=== PATIENT | female | born 1975 | race Caucasian/White ===

== ENCOUNTER 2017-10-21 09:53 | Day surgery (SDC) | payer BC ==
[2017-10-21] MEDS ORDERED: ONDANSETRON HCL INJ/PF 4 MG/2 ML SDV ONE (11:13)
[2017-10-21] MEDS ORDERED: LIDOCAINE 2% INJ-PF (20 MG/ML) 10 ML AMPUL ONE (11:13)
[2017-10-21] MEDS ORDERED: PROPOFOL INJ 200 MG/20 ML VIAL IV ONE (11:14)
[2017-10-21] MEDS ORDERED: PROMETHAZINE HCL INJ 25 MG/1 ML VIAL IV PRN ×2 (12:36)
[2017-10-21] MEDS ORDERED: FENTANYL CITRATE INJ/PF 100 MCG/2 ML AMPUL IV PRN ×3 (12:36)
[2017-10-21] MEDS ORDERED: ONDANSETRON HCL INJ/PF 4 MG/2 ML SDV IV PRN (12:36)
[2017-10-21] MEDS ORDERED: MEPERIDINE HCL/PF INJ 25 MG/1 ML DISP.SYRIN IV PRN (12:36)
[2017-10-21] MEDS ORDERED: DIPHENHYDRAMINE HCL 50 MG/ML VIAL IV PRN (12:36)
[2017-10-21] MEDS ORDERED: DEXTROSE 5%-1/2 NORMAL SALINE 1,000 ML IV PRN (13:45)
[2017-10-21] MEDS ORDERED: ACETAMINOPHEN 325 MG TABLET PO PRN (13:46)
[2017-10-21] MEDS ORDERED: SIMETHICONE 80 MG TAB.CHEW PO PRN (13:47)
[2017-10-21] MEDS ORDERED: PROMETHAZINE HCL INJ 25 MG/1 ML VIAL INJ PRN (13:48)
--- NOTE | 2017-10-21 14:32 | Operative Report ---
Operative Report DATE OF SURGERY: 10/21/17 Operative Report: The risks, benefits and alternatives of the procedure including risks of bleeding, perforation requiring surgery are explained to the patient in detail and informed consent is obtained. Patient was taken back to the operating room and placed in a left, lateral decubital position. Timeout was called. Propofol medications administered. A rectal examination is done which did not reveal any masses, tears or fissures. An Olympus videoscope was inserted into the patient's rectum. The scope was then carefully advanced all the way to the cecum. The cecum was identified by the usual anatomical landmarks including the ileocecal valve as well as the appendiceal office. Photodocumentation is obtained. The scope was then sequentially pulled back via the various segments of the colon including the ascending colon, hepatic flexure, transverse colon, splenic flexure, descending colon and finally into the rectosigmoid portions of the colon. Retroflexion maneuvers performed. The risks benefits and alternatives of the procedure explained to the patient in detail and informed consent is obtained.A GIF Olympus video scope was inserted into the patient's mouth and hypopharynx, the esophagus is identified intubated and insufflated, the scope was then advanced through the esophagus stomach and duodenum ,retroflexion maneuver is done, the esophagus stomach and first and second portions of the duodenum examined PREOPERATIVE DIAGNOSIS: Left lower quadrant pain, possible melena POSTOPERATIVE DIAGNOSIS: Internal hemorrhoids. Transverse colon polyp versus a lipoma status post biopsy. The area was tattooed with Adrienne ink for future location if biopsies are not consistent with a lipoma. 2 sigmoid polyps I removed via snare polypectomy and retrieved. Esophagitis, gastritis and duodenitis status post biopsy rule out Helicobacter pylori OPERATION: Colonoscopy with snare polypectomy. Colonoscopy with submucosal injection of Adrienne ink. Colonoscopy with biopsy. EGD with biopsy SURGEON: SHAHNAZ KOVACS ANESTHESIA: LMAC TISSUE REMOVED OR ALTERED: As noted above. COMPLICATIONS: None. ESTIMATED BLOOD LOSS: None. INTRAOPERATIVE FINDINGS: As noted above. PROCEDURE: Patient tolerated procedure well. No immediate postprocedure complications are noted. Patient discharged in good condition. Discharge date 10/21/2017. Discharge diet: Regular. Discharge activity: Regular. 2-3 week follow-up to discuss findings. Patient is instructed to call the office or proceed to the emergency room should there be any further problems or questions. We will went pathology.
[2017-10-21 16:43] VITALS: BP 120/82
== END 2017-10-21 14:15 | disposition home or self-care (01) ==
LOC: OROUT 09:53
PROVIDERS: ATTEND Internal Medicine Gastroenterology
DX: K29.70 Gastritis, unspecified, without bleeding (principal); K29.80 Duodenitis without bleeding; D12.5 Benign neoplasm of sigmoid colon; K20.9 Esophagitis, unspecified; D12.3 Benign neoplasm of transverse colon; K92.1 Melena; F17.210 Nicotine dependence, cigarettes, uncomplicated; K64.8 Other hemorrhoids
CPT/HCPCS: 43239; 45380; 45381; 88342 ×2; 88305 ×2; J2405; J2704; J3490; 813

== ENCOUNTER → 2017-10-25 | Outpatient (CLI) | payer BC ==
--- NOTE | 2017-10-26 09:06 | WOMENS IMAGING REPORT ---
EXAM DESCRIPTION: BILAT SCREENING MAMMO W/CAD COMPLETED DATE/TIME: 10/25/2017 3:53 pm REASON FOR STUDY: ROUTINE SCREENING;Z12.31 Z12.31 ENCNTR SCREEN MAMMOGRAM FOR MALIGNANT NEOPLASM OF MONIQUE COMPARISON: None. TECHNIQUE: Standard craniocaudal and mediolateral oblique views of each breast recorded using digita l acquisition. LIMITATIONS: None. FINDINGS: No masses, calcifications or architectural distortion. No areas of suspicion. Read with the assistance of CAD. .[facility] - R2 Cenova Version 1.3 .[facility] - R2 Cenova Version 1.3 .[facility] - R2 Cenova Version 2.4 .[facility] - R2 Cenova Version 2.4 .[facility] - R2 Funeral Pre Arrangement Counselor Version 9.2 IMPRESSION: NORMAL MAMMOGRAM. BIRADS 1. BREAST DENSITY: b. There are scattered areas of fibroglandular density. BIRAD: 1 NEGATIVE RECOMMENDATION: ROUTINE SCREENING COMMENT: The patient has been notified of the results by letter per SA requirements. Additional no tification policies are in place for contacting patient with suspicious or incomplete findings. Quality ID #[id number]: The [employer] recommends an annual screening mammogram for women aged 40 years or over. This facility utilizes a reminder system to ensure that all patients receive reminder letters, and/or direct phone calls for appointments. This includes reminders for routine scr eening mammograms, diagnostic mammograms, or other Breast Imaging Interventions when appropriate. Th is patient will be placed in the appropriate reminder system. The [employer] (ACR) has developed recommendations for screening MRI of the breast s in certain patient populations, to be used in conjunction with mammography. Breast MRI surveillanc e may be appropriate for women with more than 20% lifetime risk of developing breast cancer as deter mined by genetic testing, significant family history of the disease, or history of mantle radiation f or Hodgkins Disease. ACR Practice Guidelines 2008. TECHNICAL DOCUMENTATION: FINDING NUMBER: (1) ASSESSMENT: (1) JOB ID: [id number] [employer]- All Rights Reserved Reading location - IP/workstation name: [facility]
== END ==
LOC: WI 15:33
PROVIDERS: ATTEND Physician Assistant
DX: Z12.31 Encounter for screening mammogram for malignant neoplasm of breast (principal)
CPT/HCPCS: 77067

== ENCOUNTER 2017-12-03 18:40 | Emergency (ER) | payer BC ==
[2017-12-03] MEDS ORDERED: LIDOCAINE 1% INJ-PF (10 MG/ML) 30 ML SDV INJ ONE (18:58)
--- NOTE | 2017-12-03 19:53 | ER Document Report ---
HPI - HPI Pain Level: 3 Notes: Patient is a 42-year-old female with no significant past medical history who presents to the ED complaining of pain, redness, mild swelling to the left proximal thigh/groin area 1 month. Patient states that she has not noticed any abscess or purulent discharge from the site. Pain does not radiate. Patient states that she has had something like this in the past and needed antibiotics for it. She denies any drug allergies. No other concerns or complaints at this time. Patient does admit to smoking but denies IV drug use, hormone use, previous DVT/PE, recent surgery/trauma, prolonged immobilization. Denies any headache, fever, URI, sore throat, chest pain, palpitations, syncope , cough, shortness of breath, wheeze, dyspnea, abdominal pain, nausea/vomiting/ diarrhea, urinary retention, dysuria, hematuria, loss of control of bowel or bladder, numbness/tingling, saddle anesthesia, muscle paralysis/weakness. - ROS Systems Reviewed and Negative: Yes All other systems reviewed and negative Past Medical History - Social History Smoking Status: Current Every Day Smoker Family History: Reviewed & Not Pertinent Patient has suicidal ideation: No Patient has homicidal ideation: No - Past Medical History Cardiac Medical History: Denies: Hx Coronary Artery Disease, Hx Heart Attack, Hx Hypertension Pulmonary Medical History: Denies: Hx Asthma, Hx Bronchitis, Hx COPD, Hx Pneumonia Neurological Medical History: Denies: Hx Cerebrovascular Accident, Hx Seizures Renal/ Medical History: Denies: Hx Peritoneal Dialysis Musculoskeltal Medical History: Denies Hx Arthritis - Immunizations Hx Diphtheria, Pertussis, Tetanus Vaccination: Yes Vertical Provider Document - CONSTITUTIONAL Agree With Documented VS: Yes Notes: PHYSICAL EXAMINATION: GENERAL: Well-appearing, well-nourished and in no acute distress. HEAD: Atraumatic, normocephalic. EYES: Pupils equal round and reactive to light, extraocular movements intact, sclera anicteric, conjunctiva are normal. ENT: EAC clear b/l. TM's intact b/l without erythema, fluid, or perforation. Nares patent and without discharge. oropharynx clear without exudates. No tonsilar hypertrophy or erythema. Moist mucous membranes. No sinus tenderness. NECK: Normal range of motion, supple without lymphadenopathy LUNGS: Breath sounds clear to auscultation bilaterally and equal. No wheezes rales or rhonchi. HEART: Regular rate and rhythm without murmurs, rubs, gallops. ABDOMEN: Soft, nontender, nondistended abdomen. No guarding, no rebound. No masses appreciated. Normal bowel sounds present. No CVA tenderness bilaterally. Musculoskeletal: Lt LE: FROM to passive/active. Strength 5+/5. N/V intact distal. Chip neg. Extremities: No cyanosis, clubbing, or edema b/l. Peripheral pulses 2+. Capillary refill less than 3 seconds. NEUROLOGICAL: Normal speech, normal gait. Normal sensory, motor exams PSYCH: Normal mood, normal affect. SKIN: Left groin: there is erythema with induration and + tenderness associated in the left groin area. No pulsation and not in the area of the artery. No purulence or streaks. No fluctuance noted. - INFECTION CONTROL TRAVEL OUTSIDE OF THE [place] IN LAST 30 DAYS: No Course - Re-evaluation Re-evalutation: 12/03/17 19:51 Patient is an afebrile, well-hydrated, 42-year-old female who presents to the ED with cellulitis to the left groin area without abscess or fluctuance. Vitals are acceptable. PE is otherwise unremarkable. Patient has no significant tachycardia, tachypnea, or hypoxia. No incision and drainage is warranted at this time based on H&P. No other labs or imaging warranted. Patient's presentation is most consistent with an infection and not DVT or aneurysm. Low suspicion for any sepsis, meningitis, severe dehydration, respiratory compromise, or other systemic emergent condition at this time. Patient is aware that condition can change from initial presentation and she needs to monitor symptoms closely and seek medical attention with any acute changes. Patient understands that this can develop into an abscess that may warrant I&D in the future, but I will send her home with Bactrim and Keflex to take as directed. Recheck with your PCM in 2-3 days. Return to the ED with any worsening/concerning symptoms otherwise as reviewed discharge. Patient is in agreement. - Vital Signs Vital signs: Temp Pulse Resp BP Pulse Ox 98.8 F 92 20 134/83 H 94 12/03/17 19:04 12/03/17 19:04 12/03/17 19:04 12/03/17 19:04 12/03/17 19:04 Discharge - Discharge Clinical Impression: Cellulitis Qualifiers: Site of cellulitis: extremity Site of cellulitis of extremity: lower extremity Laterality: left Qualified Code(s): L03.116 - Cellulitis of left lower limb Condition: Stable Disposition: HOME, SELF-CARE Instructions: Cephalexin ([facility]), Trimethoprim-Sulfa ([facility]) Additional Instructions: Keep the skin clean Wash with soap and water Tylenol/ibuprofen if needed Triple antibiotic ointment daily Take medication as directed Monitor for any worsening symptoms Recheck with your PCM in 2-3 days Consider consult with General Surgeon for ongoing/worsening symptoms Return to the ED with any worsening symptoms and/or development of fever, headache, chest pain, palpitations, syncope, shortness of breath, trouble breathing, abdominal pain, n/v/d, abscess, purulent discharge, red streaks, worsening swelling, or other worsening symptoms that are concerning to you. Prescriptions: Cephalexin Monohydrate [Keflex 500 mg Capsule] 500 mg PO BID #20 capsule Sulfamethoxazole/Trimethoprim [Bactrim Ds Tablet] 1 each PO BID #20 tablet Forms: Elevated Blood Pressure, Smoking Cessation Education Referrals: BETHANY CARRILLO PA-C [Primary Care Provider] - 12/06/17
[2017-12-03 19:59] VITALS: BP 130/88
== END 2017-12-03 19:59 | disposition home or self-care (01) ==
LOC: ER 18:40
DX: L03.116 Cellulitis of left lower limb (principal); R10.30 Lower abdominal pain, unspecified; R19.09 Other intra-abdominal and pelvic swelling, mass and lump; F17.200 Nicotine dependence, unspecified, uncomplicated
CPT/HCPCS: 99282

== ENCOUNTER 2017-12-24 07:09 | Day surgery (SDC) | payer BC ==
[2017-12-24] MEDS ORDERED: NALOXONE HCL INJ/PF 0.4 MG/1 ML SDV ONE (07:32)
[2017-12-24] MEDS ORDERED: ONDANSETRON HCL INJ/PF 4 MG/2 ML SDV ONE (07:32)
[2017-12-24] MEDS ORDERED: DIPHENHYDRAMINE HCL 50 MG/ML VIAL ONE (07:32)
[2017-12-24] MEDS ORDERED: FLUMAZENIL INJ 0.5 MG/5 ML VIAL ONE (07:33)
[2017-12-24] MEDS ORDERED: EPINEPHRINE INJ 1 MG/10 ML DISP.SYRIN ONE (07:34)
[2017-12-24] MEDS ORDERED: GLUCAGON,HUMAN RECOMB 1 MG INJ ONE (07:34)
[2017-12-24] MEDS: MIDAZOLAM 2 MG/2 ML INJ ONE ×2 (08:06→08:14)
[2017-12-24] MEDS: FENTANYL CITRATE INJ/PF 100 MCG/2 ML AMPUL ONE ×3 (08:08→08:12)
--- NOTE | 2017-12-24 08:23 | Operative Report ---
Operative Report DATE OF SURGERY: 12/24/17 Operative Report: The risks benefits and alternatives of the procedure explained to the patient in detail and informed consent is obtained.A GIF Olympus video scope was inserted into the patient's mouth and hypopharynx ,the esophagus is identified intubated and insufflated ,the scope was then advanced through the esophagus stomach and duodenum, retroflexion maneuver is done, the esophagus stomach and first and second portions of the duodenum examined PREOPERATIVE DIAGNOSIS: Follow-up appointments esophagitis POSTOPERATIVE DIAGNOSIS: Several areas of healed the areas that have not certainly consistent with Ramos's esophagus which was treated with radiofrequency ablation. Gastritis which is improved. Duodenitis status post biopsy OPERATION: EGD with ablation. EGD with biopsy SURGEON: SHAHNAZ KOVACS ANESTHESIA: Moderate Sedation - 4 mg of Versed, 100 mcg of fentanyl. Conscious sedation monitoring time 30 minutes. TISSUE REMOVED OR ALTERED: As noted above. COMPLICATIONS: None. ESTIMATED BLOOD LOSS: None. INTRAOPERATIVE FINDINGS: As noted above. PROCEDURE: Patient tolerated the procedure well. No immediate postprocedure complications are noted. Patient discharged in good condition. Discharge date 12/24/2017. Discharge diet: Regular. Discharge activity: Regular. 2-3 week follow-up to discuss findings. Patient is instructed to call the office or proceed to the emergency room should there be any further problems or questions. We will wait on the pathology.
[2017-12-24 09:22] VITALS: BP 107/71
== END 2017-12-24 09:25 | disposition home or self-care (01) ==
LOC: END 07:09
PROVIDERS: ATTEND Internal Medicine Gastroenterology
DX: K22.70 Barrett's esophagus without dysplasia (principal); K29.50 Unspecified chronic gastritis without bleeding; K29.80 Duodenitis without bleeding; Z79.899 Other long term (current) drug therapy
CPT/HCPCS: 43270; 43239; 88305 ×2; J2250; J3010; J0171; J1200; J1610; J2310; J2405; J3490

== ENCOUNTER 2018-04-29 08:21 | Day surgery (SDC) | payer BC ==
[2018-04-29] MEDS ORDERED: PROPOFOL INJ 200 MG/20 ML VIAL IV ONE ×2 (10:16→11:43)
--- NOTE | 2018-04-29 12:16 | Operative Report ---
Operative Report DATE OF SURGERY: 04/29/18 Operative Report: The risks, benefits and alternatives of the procedure including the risks of bleeding, perforation requiring surgery are explained to the patient in detail and informed consent is obtained. Patient is brought back to the operating room and placed in the left, lateral decubital position. Timeout was called. Propofol medication is administered. A rectal examination is done which did not reveal any masses, tears or fissures. An Olympus videoscope is introduced into the patient's rectum. It is carefully advanced all the way to the cecum. The cecum was identified by the usual anatomical landmarks of the ileocecal valve as well as the appendiceal office. Photodocumentation is obtained. The scope was then sequentially pulled back via the various segments of the colon including the ascending colon, hepatic flexure, transverse colon, splenic flexure, descending colon and finally in to the rectosigmoid portions of the colon. Retroflexion maneuvers performed. The risks benefits and alternatives of the procedure explained to the patient in detail and informed consent is obtained.A GIF Olympus video scope was inserted into the patient's mouth and hypopharynx, the esophagus is identified intubated and insufflated, the scope was then advanced through the esophagus stomach and duodenum .retroflexion maneuver is done, the esophagus stomach and first and second portions of the duodenum examined PREOPERATIVE DIAGNOSIS: Personal history of polyp on previous colonoscopy. The area had previously been tattooed. History of Ramos's esophagus POSTOPERATIVE DIAGNOSIS: Snare polypectomy of the transverse colon polyp. Placement of 3 endoclips to reduce the risk of post polypectomy bleeding. Several polyps noted in the rectum that I removed via snare polypectomy. Internal hemorrhoids. Ramos's esophagus with radiofrequency ablation OPERATION: Colonoscopy with snare polypectomy and Endo Clip placement. EGD with radiofrequency ablation SURGEON: SHAHNAZ KOVACS ANESTHESIA: LMAC TISSUE REMOVED OR ALTERED: As noted above. COMPLICATIONS: None. ESTIMATED BLOOD LOSS: None. INTRAOPERATIVE FINDINGS: As noted above. PROCEDURE: Patient tolerated the procedure well. No immediate postprocedure complications are noted. Patient discharged in good condition. Discharge date 04/28/2018. Discharge diet: Regular. Discharge activity: Regular. 2-3-week follow-up to discuss findings. Patient is instructed call the office or proceed to the emergency room should there be any further proximal questions. Wait on the pathology. 1 year surveillance colonoscopy.
[2018-04-29 13:04] VITALS: BP 129/87
== END 2018-04-29 13:06 | disposition home or self-care (01) ==
LOC: OROUT 08:21
PROVIDERS: ATTEND Internal Medicine Gastroenterology
DX: K63.5 Polyp of colon (principal); D12.3 Benign neoplasm of transverse colon; K64.8 Other hemorrhoids; Z86.010 Personal history of colon polyps; K22.70 Barrett's esophagus without dysplasia; K20.9 Esophagitis, unspecified; F17.210 Nicotine dependence, cigarettes, uncomplicated; Z79.899 Other long term (current) drug therapy; E66.9 Obesity, unspecified; Z68.41 Body mass index [BMI] 40.0-44.9, adult; F41.9 Anxiety disorder, unspecified; F32.9 Major depressive disorder, single episode, unspecified
CPT/HCPCS: 43270; 45385; 81025; 88305 ×2; J2704; 45382; 813

== ENCOUNTER 2018-09-25 14:37 | Emergency (ER) | payer BC ==
[2018-09-25] MEDS ORDERED: ACETAMINOPHEN 325 MG TABLET PO ONE (15:24)
[2018-09-25] MEDS ORDERED: ONDANSETRON HCL 8 MG TABLET PO ONE (15:25)
--- NOTE | 2018-09-25 15:28 | ER Document Report ---
ED Respiratory Problem - General Chief Complaint: Cold Symptoms Stated Complaint: COLD SYMPTOMS Time Seen by Provider: 09/25/18 15:05 Primary Care Provider: BETHANY CARRILLO PA-C [Primary Care Provider] - Follow up tomorrow Mode of Arrival: Ambulatory Information source: Patient Notes: 42-year-old female presented to ED for cough cold congestion nasal pressure and sore throat times 3 weeks. She states her primary care is igor. She states she has been taken DayQuil and NyQuil Robitussin and Ursula for symptoms without relief. She took 2 Ursula and 800 mg of ibuprofen at 9:00 this morning. Her blood pressure is elevated at this time with a headache. She states she is a smoker and has been smoking for a long time. She states that she had high blood pressure in the past but that it went away they took her off the medications. She is gained about 90 pounds and now she has high blood pressure get but she has not been back to the doctor. She is alert oriented respirations regular and unlabored speaking in full sentences walks with a even steady gait. TRAVEL OUTSIDE OF THE [place] IN LAST 30 DAYS: No - HPI Patient complains to provider of: Cough Onset: Other - 3 weeks Duration: Intermittent episodes Initiating Event: URI Quality of pain: Achy Severity: Moderate Pain Level: 4 Context: Smoker Cough: Nonproductive Sputum amount: None Associated symptoms: Congestion, Cough, Headache, PND, Runny nose, Sinus pain/pressure, Sore Throat, Other - Body aches Similar symptoms previously: Yes Recently seen / treated by doctor: No - Related Data Allergies/Adverse Reactions: No Known Allergies Allergy (Verified 12/24/17 07:19) Past Medical History - General Information source: Patient - Social History Smoking Status: Current Every Day Smoker Cigarette use (# per day): Yes - Pack per day or more courage to reduce to 7 a day Chew tobacco use (# tins/day): No Smoking Education Provided: Yes - 4 minutes Frequency of alcohol use: None Drug Abuse: None Lives with: Family Family History: Reviewed & Not Pertinent Patient has suicidal ideation: No Patient has homicidal ideation: No - Past Medical History Cardiac Medical History: Reports: Hx Hypercholesterolemia Pulmonary Medical History: Reports: None EENT Medical History: Reports: None Neurological Medical History: Reports: None Endocrine Medical History: Reports: None Renal/ Medical History: Reports: None Malignancy Medical History: Reports: None GI Medical History: Reports: None Musculoskeletal Medical History: Reports None Skin Medical History: Reports Hx Psoriasis, Reports Other - Hydradenitis Psychiatric Medical History: Reports: Hx Depression Traumatic Medical History: Reports: None Infectious Medical History: Reports: None Past Surgical History: Reports: Hx Hysterectomy - Immunizations Hx Diphtheria, Pertussis, Tetanus Vaccination: Yes Review of Systems - Review of Systems Constitutional: No symptoms reported EENT: Nose congestion, Nose discharge, Sinus pressure, Sinus discharge, Throat pain Cardiovascular: No symptoms reported Respiratory: Cough Gastrointestinal: No symptoms reported Genitourinary: No symptoms reported Female Genitourinary: No symptoms reported Musculoskeletal: No symptoms reported Skin: No symptoms reported Hematologic/Lymphatic: No symptoms reported Neurological/Psychological: Headaches -: Yes All other systems reviewed and negative Physical Exam - Vital signs Vitals: Temp Pulse Resp BP Pulse Ox 97.4 F 79 16 154/96 H 96 09/25/18 14:42 09/25/18 14:42 09/25/18 14:42 09/25/18 14:42 09/25/18 14:42 Interpretation: Normal - General General appearance: Appears well, Alert - HEENT Head: Normocephalic, Atraumatic Eyes: Normal Pupils: PERRL Ears: Normal External canal: Normal Tympanic membrane: Normal Sinus: Normal Nasal: Purulent discharge, Swelling Mouth/Lips: Normal Mucous membranes: Normal Pharynx: Post nasal drainage Neck: Normal - Respiratory Respiratory status: No respiratory distress Chest status: Nontender Breath sounds: Nonproductive cough Chest palpation: Normal - Cardiovascular Rhythm: Regular Heart sounds: Normal auscultation Murmur: No - Abdominal Inspection: Normal Distension: No distension Bowel sounds: Normal Tenderness: Nontender Organomegaly: No organomegaly - Back Back: Normal, Nontender - Extremities General upper extremity: Normal inspection, Nontender, Normal color, Normal ROM, Normal temperature General lower extremity: Normal inspection, Nontender, Normal color, Normal ROM, Normal temperature, Normal weight bearing. No: Chip's sign - Neurological Neuro grossly intact: Yes Cognition: Normal Orientation: AAOx4 Fossil Coma Scale Eye Opening: Spontaneous Fossil Coma Scale Verbal: Oriented Perlita Coma Scale Motor: Obeys Commands Perlita Coma Scale Total: 15 Speech: Normal Motor strength normal: LUE, RUE, LLE, RLE Sensory: Normal - Psychological Associated symptoms: Normal affect, Normal mood - Skin Skin Temperature: Warm Skin Moisture: Dry Skin Color: Normal Course - Re-evaluation Re-evalutation: 09/25/18 16:23 After performing a Medical Screening Examination, I estimate there is LOW risk for ACUTE CORONARY SYNDROME, RESPIRATORY FAILURE, SEPSIS OR MENINGITIS, thus I consider the discharge disposition reasonable. I have reevaluated this patient multiple times and no significant life threatening changes are noted. The patient and I have discussed the diagnosis and risks, and we agree with discharging home with close follow-up. We also discussed returning to the Emergency Department immediately if new or worsening symptoms occur. We have discussed the symptoms which are most concerning (e.g., changing or worsening pain, trouble swallowing or breathing, neck stiffness, fever) that necessitate immediate return. - Vital Signs Vital signs: Temp Pulse Resp BP Pulse Ox 97.5 F 72 16 148/90 H 100 09/25/18 15:38 09/25/18 15:38 09/25/18 15:38 09/25/18 15:38 09/25/18 15:38 Discharge - Discharge Clinical Impression: URI (upper respiratory infection) Qualifiers: URI type: unspecified viral URI Qualified Code(s): J06.9 - Acute upper respiratory infection, unspecified Condition: Stable Disposition: HOME, SELF-CARE Additional Instructions: UPPER RESPIRATORY ILLNESS: You have a viral infection of the respiratory passages -- a "cold." This common infection causes nasal congestion, drainage, and often sore throat and cough. It is highly contagious. The disease usually lasts about 10 to 14 days. There is no "cure" for the viral infection -- it must run its course. If there is a complication, such as bacterial infection in the nose, sinuses, middle ear, or bronchial tubes, antibiotics may be required. The antibiotics won't affect the virus. Drink plenty of fluids. A humidifier may help. An expectorant medication or decongestant may make you more comfortable. Use acetaminophen or ibuprofen for fever or aches. See the doctor if fever persists over two days, if there is any significant worsening of your symptoms, or if you simply fail to improve as expected. Please use Coricidin HB for your cough cold congestion instead of other ove [id number] medications. Other medications can cause your blood pressure to increase and your blood pressure is elevated at this time. Please use Flonase nasal spray this will also decrease the congestion and decrease your cough. You could also use salt and soda solution gargles which will remove the postnasal drip. I know you state you cannot stop smoking suddenly but please try to limit your cigarettes as much as possible until you get over this call. Please try to limit to no more than 7 cigarettes a day if possible. Please call your primary care doctor tomorrow and talk with him about this blood pressure. I know you state that you had this pressure before and had and were all medications in the past but they took you off of them. You state you have gained a lot of weight but are trying to lose it again. Please talk to them about a medication that you can take while you try to lose this weight. USE OF ACETAMINOPHEN (Tylenol): Acetaminophen may be taken for pain relief or fever control. It's much safer than aspirin, offering a wider range of "safe" dosages. It is safe during . Some brand names are Tylenol, Panadol, Datril, Anacin 3, Tempra, and Liquiprin. Acetaminophen can be repeated every four hours. The following are maximum recommended dosages: >89 pounds or adults 650 mg to 900 mg Acetaminophen can be repeated every four hours. Maximum dose not to exceed 4000 mg a day. SMOKING: If you smoke, you should stop smoking. The tar and chemicals in cigarette smoke are harmful. Smoking has been shown to cause: emphysema chronic bronchitis lung cancer mouth and throat cancer stomach and pancreas cancer premature aging defects In addition, smoking increases ear and lung infections in children of smokers. FOLLOW-UP CARE: If you have been referred to a physician for follow-up care, call the physicians office for an appointment as you were instructed or within the next two days. If you experience worsening or a significant change in your symptoms, notify the physician immediately or return to the Emergency Department at any time for re-evaluation. Prescriptions: Ondansetron [Zofran Odt 4 mg Tablet] 1 tab PO Q6H #15 tab.rapdis Forms: Elevated Blood Pressure, Smoking Cessation Education, Return to Work Referrals: BETHANY CARRILLO PA-C [Primary Care Provider] - Follow up tomorrow
[2018-09-25 15:41] VITALS: BP 148/90
== END 2018-09-25 15:38 | disposition home or self-care (01) ==
LOC: ER 14:37
DX: J06.9 Acute upper respiratory infection, unspecified (principal); E78.00 Pure hypercholesterolemia, unspecified; F17.210 Nicotine dependence, cigarettes, uncomplicated
CPT/HCPCS: 99406; 99283; S0119

== ENCOUNTER 2019-06-26 19:47 | Emergency (ER) | payer BC ==
[2019-06-26] MEDS ORDERED: IPRATROPIUM/ALBUTEROL 0.5-2.5 MG/3 ML AMPUL NEB ONE ×2 (21:20→22:50)
[2019-06-26] MEDS ORDERED: ALBUTEROL SULFATE 0.083% NEB 2.5 MG/3 ML AMPUL NEB ONE (21:22)
[2019-06-26] MEDS ORDERED: PREDNISONE 20 MG TABLET PO ONE (21:22)
--- NOTE | 2019-06-26 21:22 | ER Document Report ---
ED Medical Screen (RME) - General Stated Complaint: COLD/FLU SYMPTOMS Time Seen by Provider: 06/26/19 21:20 Primary Care Provider: BETHANY CARRILLO PA-C [Primary Care Provider] - Follow up as needed Notes: Patient presents with sore throat ear pain and cough for the past 2 and half weeks. Patient reports fever off and on. Patient also complains of diarrhea. I have greeted and performed a rapid initial assessment of this patient. A comprehensive ED assessment and evaluation of the patient, analysis of test results and completion of the medical decision making process will be conducted by additional ED providers. TRAVEL OUTSIDE OF THE [place] IN LAST 30 DAYS: No - Related Data Allergies/Adverse Reactions: No Known Allergies Allergy (Verified 06/26/19 21:20) Past Medical History - Past Medical History Cardiac Medical History: Reports: Hx Hypercholesterolemia Denies: Hx Coronary Artery Disease, Hx Heart Attack, Hx Hypertension Pulmonary Medical History: Denies: Hx Asthma, Hx Bronchitis, Hx COPD, Hx Pneumonia Neurological Medical History: Denies: Hx Cerebrovascular Accident, Hx Seizures Renal/ Medical History: Denies: Hx Peritoneal Dialysis Musculoskeltal Medical History: Denies Hx Arthritis Skin Medical History: Reports Hx Psoriasis Psychiatric Medical History: Reports: Hx Depression Past Surgical History: Reports: Hx Hysterectomy - Immunizations Hx Diphtheria, Pertussis, Tetanus Vaccination: Yes Physical Exam - Vital signs Vitals: Temp Pulse Resp BP Pulse Ox 98.0 F 80 18 153/83 H 94 06/26/19 20:33 06/26/19 20:33 06/26/19 20:33 06/26/19 20:33 06/26/19 20:33 - Respiratory Respiratory status: No respiratory distress Breath sounds: Nonproductive cough, Wheezing Course - Vital Signs Vital signs: Temp Pulse Resp BP Pulse Ox 98.0 F 80 18 153/83 H 94 06/26/19 20:33 06/26/19 20:33 06/26/19 20:33 06/26/19 20:33 06/26/19 20:33 Doctor's Discharge - Discharge Referrals: BETHANY CARRILLO PA-C [Primary Care Provider] - Follow up as needed
--- NOTE | 2019-06-26 22:41 | ER Document Report ---
ED General - General Chief Complaint: Cold Symptoms Stated Complaint: COLD/FLU SYMPTOMS Time Seen by Provider: 06/26/19 21:20 Primary Care Provider: BETHANY CARRILLO PA-C [Primary Care Provider] - Follow up as needed Information source: Patient TRAVEL OUTSIDE OF THE [place] IN LAST 30 DAYS: No - HPI Onset: Other - over the last 2 months Onset/Duration: Gradual Quality of pain: No pain Severity: Moderate Pain Level: Denies Exacerbated by: Coughing Relieved by: Other - nothing Similar symptoms previously: No Recently seen / treated by doctor: Yes - yadira saw her PCP who prescribed her Doxycyline (finished it 3 weeks ago) Notes: 43 year old female smoker with no known PMH here for for 2 months of a cough, congestion, shortness of breath, sore throat. The patient saw her PCP who prescribed her Doxycyline (she finsihed this 3 weeks ago) but her symptoms persist. The patient tells me she has tried to cut back on smoking but she is still smoking. The patient denies fevers, chills, sweats, nausea, vomiting chest pain. - Related Data Allergies/Adverse Reactions: No Known Allergies Allergy (Verified 06/26/19 21:20) Past Medical History - General Information source: Patient - Social History Smoking Status: Current Every Day Smoker Frequency of alcohol use: None Drug Abuse: None Family History: Reviewed & Not Pertinent Patient has suicidal ideation: No Patient has homicidal ideation: No - Past Medical History Cardiac Medical History: Reports: Hx Hypercholesterolemia Denies: Hx Coronary Artery Disease, Hx Heart Attack, Hx Hypertension Pulmonary Medical History: Denies: Hx Asthma, Hx Bronchitis, Hx COPD, Hx Pneumonia Neurological Medical History: Denies: Hx Cerebrovascular Accident, Hx Seizures Renal/ Medical History: Denies: Hx Peritoneal Dialysis Musculoskeletal Medical History: Denies Hx Arthritis Skin Medical History: Reports Hx Psoriasis Psychiatric Medical History: Reports: Hx Depression Past Surgical History: Reports: Hx Hysterectomy - Immunizations Hx Diphtheria, Pertussis, Tetanus Vaccination: Yes Review of Systems - Review of Systems Constitutional: denies: Fever EENT: Throat pain Respiratory: Cough, Wheezing Physical Exam - Vital signs Vitals: Temp Pulse Resp BP Pulse Ox 98.0 F 80 18 153/83 H 94 06/26/19 20:33 06/26/19 20:33 06/26/19 20:33 06/26/19 20:33 06/26/19 20:33 - Notes Notes: GENERAL: Well-appearing, well-nourished and in no acute distress. HEAD: Atraumatic, normocephalic. EYES: Pupils equal round and reactive to light, extraocular movements intact, sclera anicteric, conjunctiva are normal. ENT: TMs normal, nares patent. Posterior Pharynx is erythematous. oropharynx clear without exudates. Moist mucous membranes. NECK: Normal range of motion, supple without lymphadenopathy or JVD. LUNGS: Mild diffuse wheezing. No rales or rhonchi. HEART: Regular rate and rhythm without murmurs, rubs or gallops. ABDOMEN: Soft, nontender, normoactive bowel sounds. No guarding, no rebound. No masses appreciated. EXTREMITIES: Normal range of motion, no pitting or edema. No clubbing or cyanosis. NEUROLOGICAL: Cranial nerves II through XII grossly intact. Normal speech, normal gait. PSYCH: Normal mood, normal affect. SKIN: Warm, Dry, normal turgor, no rashes or lesions noted. Course - Re-evaluation Re-evalutation: 06/26/19 23:55 The patient has had 2 months of a cough, sore throat, and congestion. She finished a course of Doxycyline 3 weeks ago. Her Chest Xray and rapid strep are not abnormal today. Patient told to stop smoking and she was treated with Nebs, Prednisone and Tessalone Perles. Will DC on the same. - Vital Signs Vital signs: Temp Pulse Resp BP Pulse Ox 98.0 F 80 18 153/83 H 94 06/26/19 20:33 06/26/19 20:33 06/26/19 20:33 06/26/19 20:33 06/26/19 20:33 Discharge - Discharge Clinical Impression: Cough, Wheezing Condition: Stable Disposition: HOME, SELF-CARE Instructions: Bronchitis With Bronchospasm (Wheezing) ([facility]), Cough Suppressant & Expectorant Medications Additional Instructions: Take prednisone as prescribed. Use Albuterol as needed for wheezing. Use Tessalon Perles as needed for cough. Follow up with your primary care doctor if symptoms persist. Prescriptions: Benzonatate [Tessalon Perles 100 mg Capsule] 100 mg PO Q8HP PRN #20 capsule PRN Reason: Prednisone 50 mg PO DAILY 5 Days #5 tablet Albuterol Sulfate [Proair Digihaler] 90 mcg IH Q6H 30 Days #1 aer.pw.[id number] Referrals: BETHANY CARRILLO PA-C [Primary Care Provider] - Follow up as needed
--- NOTE | 2019-06-26 22:54 | RADIOLOGY REPORT (SQ) ---
EXAM DESCRIPTION: [facility]: XR CHEST 2 VIEWS Views: 2 CLINICAL HISTORY: 43 years Female, cough COMPARISON: None. FINDINGS: The lungs are clear. No pneumothorax or significant pleural effusion. Cardiomediastinal silhouette is within normal limits. Bony structures are unremarkable for age. IMPRESSION: 1. No acute cardiothoracic abnormality.
[2019-06-27 00:33] VITALS: BP 148/80
== END 2019-06-27 00:05 | disposition home or self-care (01) ==
LOC: ER 19:47
DX: R05 Cough (principal); R06.2 Wheezing; R06.02 Shortness of breath; J02.9 Acute pharyngitis, unspecified; F17.200 Nicotine dependence, unspecified, uncomplicated
CPT/HCPCS: 94640 ×2; 99283; 87070; 87880; 71046; J7512; J7620